=== PATIENT | male | born 1985 | race Hispanic/Latino ===

== ENCOUNTER 2016-11-18 09:55 | Emergency (ER) | payer SELFPAY ==
[2016-11-18 10:06] VITALS: BP 121/68; PULSE 54; RESP 20; TEMP 97.9; O2SAT 96
--- NOTE | 2016-11-18 10:28 | ED PDOC ---
HPI: General Adult Time Seen by Provider: 11/18/16 10:15 Chief Complaint (Nursing): Lower Extremity Problem/Injury History Per: Patient Additional Complaint(s): Pt. states earlier today he twisted his L ankle while at work. Reports feeling a "snap." Denies numbness, tingling, other injury. Past Medical History Reviewed: Historical Data, Nursing Documentation, Vital Signs Vital Signs: Last Vital Signs Temp 97.9 F 11/18/16 10:05 Pulse 54 L 11/18/16 10:05 Resp 20 11/18/16 10:05 BP 121/68 11/18/16 10:05 Pulse Ox 96 11/18/16 10:30 - Surgical History Other surgeries: L 5th metatarsal fracture - 10-11 years ago - Family History Family History: States: No Known Family Hx - Allergies Allergies/Adverse Reactions: Allergies Allergy/AdvReac Type Severity Reaction Status Date / Time No Known Allergies Allergy Verified 11/18/16 10:12 Review of Systems ROS Statement: Except As Marked, All Systems Reviewed And Found Negative Physical Exam - Physical Exam Appears: Positive for: Well, Non-toxic, No Acute Distress Skin: Positive for: Normal Color, Warm. Negative for: Rash Extremity: Positive for: Normal ROM, Capillary Refill (< 2 seconds on L foot), Other (L ankle with moderate swelling and minimal tenderness on lateral malleolus without deformity; no foot, leg, or knee tenderness, swelling, or deformity; distal sensation intact and equal b/l; no skin changes; no achilles tendon tenderness or deformity). Negative for: Pedal Edema (L foot), Calf Tenderness (L leg) Neurologic/Psych: Positive for: Alert, Oriented - ECG O2 Sat by Pulse Oximetry: 96 - Radiology X-Ray: Interpreted by Me (L ankle x-ray) X-Ray Interpretation: No Acute Disease - Progress ED Course And Treament: L ankle x-ray ordered. Pt. offered pain meds in ED but refused. Ankle immobilized in ankle aircast splint by animal tech. Crutches and crutch walking instructions given. RICE instructions given to patient. Instructed to f/u with podiatry clinic in 2-3 days for further evaluation. Disposition - Clinical Impression Clinical Impression: Ankle injury - Patient ED Disposition Is Patient to be Admitted: No - Disposition Referrals: [facility] [place] [Outside] [facility] [Outside] Disposition: Routine/Home Disposition Time: 10:50 Condition: STABLE Additional Instructions: Take Tylenol or Motrin at home as needed for pain. Follow up with podiatry clinic for further evaluation. Instructions: Ankle Sprain (ED), Ankle Stirrup Splint (ED), Crutch Instructions (ED), RICE Therapy (ED) Forms: [employer] [facility] (Fijian), [facility] ED School/Work Excuse Print Language: MICRONESIAN
--- NOTE | 2016-11-18 10:49 | RAD ---
PROCEDURE: Left Ankle Radiographs. HISTORY: trauma COMPARISON: None available. FINDINGS: BONES: No acute displaced fracture. JOINTS: No dislocation. SOFT TISSUES: Soft tissue swelling, greater laterally than medially. No evidence of radiopaque foreign body. OTHER FINDINGS: None. IMPRESSION: Soft tissue swelling, greater laterally than medially. No acute displaced fracture or dislocation identified. If symptoms persist or if there is clinical concern, x-ray follow-up in 7-10 days should be considered.
== END 2016-11-18 11:12 | disposition home or self-care (01) ==
LOC: H.ER 09:55
DX: S99.912A Unspecified injury of left ankle, initial encounter (principal); X50.1XXA Overexertion from prolonged static or awkward postures, initial encounter; Y99.0 Civilian activity done for income or pay